=== PATIENT | male | born 1945 | race Caucasian/White ===

== ENCOUNTER 2016-11-18 06:06 | Outpatient (CLI) | payer MEDICARE, OTHER ==
[~2016-11-18] VITALS: Ht 175.3 cm; Wt 98.3 kg
--- NOTE | ~2016-11-18 | CATH ---
Cardiac Diagnostic Report Demographics Patient Name BLAIR Perera Gender Male Date of 1945 Age 71 year(s) Patient Number [id number] Date of Study 11/18/2016 Visit Number [id number] Room Number G6399 [place] [id number] Ht 175.26 cm Wt 98.3 kg Referring Larry Valentin Primary Physician Physician MD Performing Haritha Shay MD Secondary Physician Physician Diagnostic Haritha Shay MD Assisting Physician Physician Interventional Physician [employer] Fabricator Physician Findings and Conclusions Diagnostic Findings and Conclusion 3 Vessel CAD 4/4 grafts patent Diagnostic Recommendations Medical Therapy Routine post Perclose Procedure Description The patient was brought to the diagnostic cardiac catheterization-EP laboratory in the fasting, non-sedated state. Informed consent was obtained in the written and verbal form after the risks and benefits were explained. The patient had no further questions and agreed to proceed. The planned puncture-incision site(s) were shaved and prepped with ChloraPrep and draped in the usual sterile manner. Conscious sedation, supplemental oxygen, and pain control medications were delivered by a registered nurse under physician guidance. Surface ECG rhythm, blood pressure measurement, and pulse oximetry were monitored throughout the procedure. Arterial access. The access site was infiltrated with lidocaine. The vessel was entered with the Seldinger technique. A sheath was advanced into the vessel and used for catheter placement. Selective left coronary angiography. A catheter was advanced into the left coronary vessel ostium under Fluoroscopic guidance. Contrast was injected by hand. Images were obtained in multiple projections. Selective right coronary angiography. A catheter was advanced into the right coronary vessel ostium under fluoroscopic guidance. Contrast was injected by hand. Images were obtained in multiple projections. Selective YANEZ graft angiography. A catheter was advanced into the left internal mammary graft ostium under fluoroscopic guidance. Contrast was injected by hand. Images were obtained in multiple projections. Selective SVG angiography. A catheter was advanced into the graft proximal anastomosis under fluoroscopic guidance. Contrast was injected by hand. Images were obtained in multiple projections. Left heart catheterization. A catheter was advanced across the aortic valve to the left ventricle under fluoroscopic guidance. Resting hemodynamics were obtained. Arterial artery hemostasis. Hemostasis was achieved. The patient was transferred to a regular nursing floor via cart accompanied by a nurse. The patient left the laboratory in stable condition. Diagnostic Cath Status: Elective Procedure Procedure Type Indications: Chest pain. The procedure was explained in detail to the patient. Risks, complications and alternative treatments were reviewed. Written consent was obtained. Medications Reviewed with Patient prior to Procedure. Angiographic Findings Dominance: Right Cardiac Arteries and Lesion Findings LMCA: Normal (0% Stenosis).Large caliber vessel. LAD: Abnormal.The LAD is a large caliber vessel. The 1st Diag is a small caliber vessel. The 1st Diag appears normal. Lesion on Mid LAD: 100% stenosis . LCx: Abnormal.LCx Medium caliber Non- Dominant vessel. The 1st ob Amy is a small caliber vessel. The 1st ob Amy appears normal. The 2nd ob Amy is a medium caliber vessel. The 2nd ob Amy appears abnormal. Lesion on Mid CX: 40% stenosis . Lesion on 2nd Ob Amy: Mid subsection.100% stenosis . RCA: Abnormal.RCA Large caliber, Dominant vessel. The R PL is a medium caliber vessel. The R PL appears subtotal with competitive flow. The R PDA is a medium caliber vessel. The R PDA appears normal. Lesion on Mid RCA: 50% stenosis . Lesion on 1st RPL: 99% stenosis . Cardiac Grafts - There is a Vein graft that originates at the Aorta Right and attaches to the R PAV (The RCA graft is large and markedly etatic.). - There is a Vein graft that originates at the Aorta Left and attaches to the 1st Diag (The SVG graft is large and patent to a small normal Diag .). - There is a Vein graft that originates at the Aorta Left and attaches to the 2nd Ob Amy (The SVG graft is large and normal to the OM and is patent.). - There is a YANEZ graft that originates at the YANEZ and attaches to the Mid LAD (The YANEZ graft is patent.). Coronary Tree Procedure Data Procedure Date Date: 11/18/2016Start: 08:10 AMEnd: 08:40 AM Entry Locations - Retrograde Percutaneous access was performed through the Right Femoral artery (Primary location). A 6 Fr sheath was inserted. Hemostasis was successfully obtained using Perclose ProGlide (Gray). Closure Comments: michael. Procedure Medications Order and Administration + + + +-------+ !Time !Medication !Dosage !Route ! + + + +-------+ !11/18/2016 08:02 AM !Fentanyl !50 mcg !I.V. ! + + + +-------+ !11/18/2016 08:07 AM !Versed !1 mg !I.V. ! + + + +-------+ !11/18/2016 08:11 AM !Oxygen !2 l/min !NC ! + + + +-------+ !11/18/2016 08:31 AM !Fentanyl !50 mcg !I.V. ! + + + +-------+ Devices Used - A6 Fr. BS JL 4 Diag. Catheterwas used for:Left coronary angiography. - A6 Fr. BS JR 4 Diag. Catheterwas used for:Right coronary angiography. - A6 Fr. BS IMT Diag. Catheter. - A6 Fr. BS Angled Pigtail Diag. Catheterwas used for:LV Pressures. Contrast Material - Isovue [id number] ml Fluoroscopy Time: Diagnostic: 8:18 minutes. Total: 8:18 minutes. Fluoroscopy Dose: Diagnostic: 1576 mGy. Total: 1576 mGy. Estimated Blood Loss: 4 ml. Medical History Performed Procedures and Imaging Results - Stress testing with SPECT MPIwas performed. Results were: Positive. Risk/Extent of ischemia was: Unavailable. Allergies - No known allergies. 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 Admission Data Admission Date: 11/18/2016 Admission Time: 06:06 AM Admit Source: Other Insurance Payors: Medicare. Admission Medications + +------+------+ + + + + !Medication !Dosage!Times !Last !Last !Administered !Comments ! ! ! !Per !Delivery !Delivery ! ! ! ! ! !Day !Date !Time ! ! ! + +------+------+ + + + + !SOTO ! ! ! ! !Yes ! ! !Inhibitor ! ! ! ! ! ! ! !(any) ! ! ! ! ! ! ! + +------+------+ + + + + !Beta Michael! ! ! ! !Yes ! ! !(any) ! ! ! ! ! ! ! + +------+------+ + + + + !Aspirin ! ! ! ! !Yes ! ! !(any) ! ! ! ! ! ! ! + +------+------+ + + + + !Statin (any)! ! ! ! !Yes ! ! + +------+------+ + + + + Clinical Evaluation Leading to Procedure - The patient's CAD presentation was assessed as: Stable angina. - The patient's anginal syndrome during the past two weeks was assessed as: Class II according to the [place] Cardiovascular Society Classification System (CCS). Anti-anginal medications were prescribed during the past two weeks. The medication is: Beta Blockers. [facility] . Ejection Fraction - Method: Radionucleotide. EF%: 70. Hemodynamics Condition: Rest O2 Consumption: Estimated: 238.36Heart Rate: 59 bpm Pressures (mmHg) +-----+ + !Site !Pressure ! +-----+ + !AO !160/77 (110) ! +-----+ + !LV !159/2 ,17 ! +-----+ + !LV !153/-1 ,15 ! +-----+ + !AO !155/67 (102) ! +-----+ + !LV !157/0 ,19 ! +-----+ + Valve Gradients and Areas + +---------+---------+---------+ +---------+ + !Valve !Peak !Mean !Area !Index !Flow !Source ! + +---------+---------+---------+ +---------+ + !Aortic !5 !8 ! ! ! ! ! + +---------+---------+---------+ +---------+ + !Aortic !5 !8 ! ! ! ! ! + +---------+---------+---------+ +---------+ + Shunts Oxygen Values O2 Capacity 198.56 O2 Consumption 238.36 Discharge Data Discharge Date: 11/18/2016 Hospital Status: Outpatient Signatures dtt: Jaspal Mg (cardio) dtd: 11/18/16 0810 Physician Self Edit
[~2016-11-18 06:06] MED LIST: ASPIR 8181 MG PO; COREG25 MG PO; FISH OIL 1,0001 EAC4 PO; LIPITOR40 MG PO; MULTI VITAMIN1 EACH PO; NIACIN CONTROL500 MG PO; PRILOSEC20 MG PO; PRINIVIL (ZESTR20 MG PO; STOOL SOFTENER1 EACH PO; VITAMIN D1000 UNIT PO
[2016-11-18] MEDS ORDERED: NITROGLYCERIN0.2 MG TRANS (09:38)
== END 2016-11-18 11:45 | disposition disaster alternative care site (69) ==
LOC: GPOC 06:06 → GPCU 06:06 → GPOC 11:45
DX: R94.39 Abnormal result of other cardiovascular function study (principal); I20.8 Other forms of angina pectoris
CPT/HCPCS: C1760; J1644; J2001; J2250; J3010; J7030